=== PATIENT | female | born 2005 | race Caucasian/White ===

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

== ENCOUNTER 2023-01-29 18:38 | Emergency (ER) | payer OTHER ==
[~2023-01-29] VITALS: Ht 160 cm; Wt 124.3 kg
[2023-01-29 18:52] VITALS: BP 194/94
== END 2023-01-29 19:38 | disposition home or self-care (01) ==
LOC: ER 18:38
DX: J02.0 Streptococcal pharyngitis (principal); B95.0 Streptococcus, group A, as the cause of diseases classified elsewhere
CPT/HCPCS: 87081; 87147; 96372; 99283-25; J0561; J1100

== ENCOUNTER → 2024-01-14 | Outpatient (CLI) | payer OTHER | LOC: LAB SHORT 14:41 → LAB 14:41 | DX: N39.0 Urinary tract infection, site not specified (principal) | CPT/HCPCS: 87086 ==

== ENCOUNTER → 2025-07-07 | Outpatient (CLI) | payer OTHER ==
[2025-07-07 20:49] LABS: Ferritin, Serum 7.0 ng/mL (8-252); Total Iron Binding Capacity 473.0 ug/dL (250-450)
== END ==
LOC: LAB SHORT 16:00 → LAB 16:00
PROVIDERS: Student in an Organized Health Care Education/Training Program
DX: E61.1 Iron deficiency (principal)
CPT/HCPCS: 82728; 83540; 83550